=== PATIENT | male | born 1945 | race Caucasian/White ===

== ENCOUNTER 2021-08-31 00:52 | Inpatient (IN) | payer MEDICARE, MEDICAID ==
[~2021-08-31] VITALS: Ht 172.7 cm; Wt 121.6 kg
[2021-08-31 01:00] VITALS: BP 175/76
[2021-08-31] MEDS ORDERED: HYDRALAZINE 20MG/ML VIAL IV PRN ×2 (02:30→15:45)
[2021-08-31] MEDS ORDERED: DIPHENHYDRAMINE 50MG/ML VIAL IV PRN (02:30)
[2021-08-31] MEDS ORDERED: CLONIDINE 0.1MG TABLET PO PRN (02:30)
[2021-08-31] MEDS ORDERED: ACETAMINOPHEN 325MG TABLET PO PRN (02:30)
[2021-08-31] MEDS ORDERED: ACETAMINOPHEN 650MG SUPP PR PRN (02:30)
[2021-08-31] MEDS ORDERED: TOPUD PO (02:43)
[2021-08-31] MEDS ORDERED: HYDRALAZINE 5 MG in SODIUM CHLORIDE 0.9% 49.5 ML IV PRN (02:45)
[2021-08-31] MEDS ORDERED: MINE50OI TP (02:53)
[2021-08-31] MEDS: DEXT 5%/LACTATED RINGERS 1,000 ML IV SCH ×2 (03:23→22:11)
[2021-08-31 04:00] VITALS: BP 139/75
[2021-08-31] MEDS ORDERED: DEXJ4 IV (04:02)
[2021-08-31] MEDS ORDERED: FLUC200T51 PO (04:03)
[2021-08-31] MEDS ORDERED: MUPI1OIN4 TP (04:07)
[2021-08-31] MEDS ORDERED: ONDA4VIA22 IJ (04:07)
[2021-08-31] MEDS ORDERED: METO-293 IV (04:07)
[2021-08-31] MEDS ORDERED: HYDR-4001 PO (04:07)
[2021-08-31] MEDS ORDERED: MORP10SY6 IV (04:07)
[2021-08-31] MEDS: DEXAMETHASONE 4MG/ML 1ML VIAL IV SCH ×3 (05:35→18:25)
[2021-08-31 08:00] VITALS: BP 127/85
[2021-08-31] MEDS: MORPHINE SULFATE 2 MG/ML CPJ (NOT FOR IM USE) IV PRN ×2 (08:56→12:44)
[2021-08-31] MEDS ORDERED: LACTULOSE 20G/30ML UDC PO SCH (10:00)
[2021-08-31 11:34] LABS: INR 1.2; PARTIAL THROMBOPLASTIN TIME 24.3 sec (23.4-31.0); PROTHROMBIN TIME 13.1 sec (9.6-11.0)
[2021-08-31 12:00] VITALS: BP 116/80
[2021-08-31] MEDS ORDERED: VANCOMYCIN 1,500 MG in DEXT 5% WATER 250 ML IV SCH (12:00)
[2021-08-31] MEDS: DOCUSATE SODIUM 250MG CAPSULE PO SCH (12:01)
[2021-08-31] MEDS ORDERED: LIDOCAINE HCL 1% 20ML VIAL (Pyxis) INJ ONE (12:30)
[2021-08-31] MEDS: PIPERACILLIN/TAZOBACTAM 3.375 G in DEXTROSE 5% WATER 50 ML IV SCH ×2 (12:44→22:10)
[2021-08-31] MEDS: ONDANSETRON HCL 4MG/2ML INJ IV PRN (12:44)
[2021-08-31 14:11] LABS: CHLORIDE 109 mEq/L (98-107)
[2021-08-31] MEDS ORDERED: LIDOCAINE HCL 1% 30ML VIAL (10MG/ML) ONE (14:30)
[2021-08-31 15:55] VITALS: BP 139/80
[2021-08-31 17:44] LABS: HEMOGLOBIN. 15.8 g/dL (14.0-18.0); MEAN CORPUSCULAR HEMOGLOBIN 30.5 pg (28.0-32.0); MEAN CORPUSCULAR VOLUME 92.8 fL (80.0-94.0); MEAN PLATELET VOLUME 10.6 fl (7.4-10.4); PLATELET 105 x1000/uL (130-400); RED BLOOD CELL COUNT 5.17 mill/uL (4.7-6.1); RED CELL DISTRIBUTION WIDTH 16.4 % (11.6-14.6)
[2021-08-31 18:18] LABS: PLATELET ESTIMATE DECREASED
[2021-08-31] MEDS ORDERED: NALOXONE HCL 0.4MG/ML VIAL IV PRN (18:45)
[2021-08-31 20:00] VITALS: BP 130/78
[2021-08-31] MEDS: LEVETIRACETAM 500MG TABLET PO SCH (21:07)
[2021-08-31] MEDS: DOCUSATE SODIUM 100MG CAPSULE PO PRN (21:07)
[2021-09-01] VITALS: BP 147/86
[2021-09-01] MEDS: DEXAMETHASONE 4MG/ML 1ML VIAL IV SCH ×5 (00:36→18:26)
[2021-09-01 04:00] VITALS: BP 154/100
[2021-09-01] MEDS: PIPERACILLIN/TAZOBACTAM 3.375 G in DEXTROSE 5% WATER 50 ML IV SCH ×3 (05:33→21:17)
[2021-09-01] MEDS: VANCOMYCIN 1500MG in DEXTROSE 5% WATER 250ML IV SCH (06:37)
[2021-09-01 08:00] VITALS: BP 164/92
[2021-09-01] MEDS ORDERED: GADOTERATE MEGLUMINE 5 MMOL/10 ML VIAL IV ONE (08:22)
[2021-09-01] MEDS: DOCUSATE SODIUM 250MG CAPSULE PO SCH ×2 (09:00→09:59)
[2021-09-01] MEDS: LEVETIRACETAM 500MG TABLET PO SCH ×3 (09:00→21:11)
[2021-09-01] MEDS: MORPHINE SULFATE 2 MG/ML CPJ (NOT FOR IM USE) IV PRN (09:59)
[2021-09-01] MEDS ORDERED: DIAZEPAM 5 MG TABLET PO NR (11:45)
[2021-09-01 12:00] VITALS: BP 162/87
[2021-09-01] MEDS ORDERED: DIAZEPAM 2 MG TABLET PO NR (13:15)
[2021-09-01] MEDS ORDERED: DEXTROSE 50% WATER 50ML SYRINGE IV PRN (13:30)
[2021-09-01] MEDS ORDERED: LORAZEPAM 2MG/ML CPJ IV NR (13:40)
[2021-09-01] MEDS ORDERED: LORAZEPAM 2MG/ML CPJ IV ONE (13:45)
[2021-09-01 16:00] VITALS: BP 130/80
[2021-09-01 16:27] LABS: HEMOGLOBIN. 15.3 g/dL (14.0-18.0); MEAN CORPUSCULAR HEMOGLOBIN 30.4 pg (28.0-32.0); MEAN CORPUSCULAR VOLUME 91.4 fL (80.0-94.0); MEAN PLATELET VOLUME 11.8 fl (7.4-10.4); PLATELET 91 x1000/uL (130-400); RED BLOOD CELL COUNT 5.04 mill/uL (4.7-6.1); RED CELL DISTRIBUTION WIDTH 16.3 % (11.6-14.6)
[2021-09-01 16:32] LABS: CHLORIDE 110 mEq/L (98-107)
[2021-09-01 16:59] LABS: PLATELET ESTIMATE DECREASED
[2021-09-01] MEDS: BLOOD SUGAR DIAGNOSTIC STRIP TEST SCH ×2 (17:54→21:11)
[2021-09-01] MEDS: AMLODIPINE 5MG TABLET PO SCH (18:21)
[2021-09-01] MEDS: INSULIN LISPRO 100 UNITS/ML SUBCUT SCH ×2 (18:33→21:10)
[2021-09-01] MEDS: DEXT 5%/LACTATED RINGERS 1,000 ML IV SCH (19:00)
[2021-09-01 20:00] VITALS: BP 127/75
[2021-09-01] MEDS: DOCUSATE SODIUM 100MG CAPSULE PO PRN (21:28)
[2021-09-02] VITALS: BP 120/71
[2021-09-02] MEDS: DEXAMETHASONE 4MG/ML 1ML VIAL IV SCH ×4 (00:45→17:59)
[2021-09-02] MEDS: VANCOMYCIN 1500MG in DEXTROSE 5% WATER 250ML IV SCH (00:45)
[2021-09-02 01:13] LABS: CLARITY URINE CLEAR (CLEAR); COLOR URINE DARK YELLOW (YELLOW); KETONES URINE TRACE (NEGATIVE); LEUKOCYTE ESTERASE URINE NEGATIVE (NEGATIVE); NITRITE URINE NEGATIVE (NEGATIVE); OCCULT BLOOD URINE NEGATIVE (NEGATIVE); PH URINE 5.5 (4.5-8.0); PROTEIN URINE 2+ (NEGATIVE)
[2021-09-02] MEDS: MORPHINE SULFATE 2 MG/ML CPJ (NOT FOR IM USE) IV PRN ×2 (01:43→08:25)
[2021-09-02] MEDS: ONDANSETRON HCL 4MG/2ML INJ IV PRN ×2 (01:43→08:24)
[2021-09-02] MEDS: LACTULOSE 20G/30ML UDC PO PRN ×2 (03:17→12:19)
[2021-09-02 04:00] VITALS: BP 140/76
[2021-09-02] MEDS: PIPERACILLIN/TAZOBACTAM 3.375 G in DEXTROSE 5% WATER 50 ML IV SCH ×3 (05:59→21:10)
[2021-09-02] MEDS: BLOOD SUGAR DIAGNOSTIC STRIP TEST SCH ×4 (06:21→21:09)
[2021-09-02 08:00] VITALS: BP 163/79
[2021-09-02] MEDS: INSULIN LISPRO 100 UNITS/ML SUBCUT SCH ×4 (08:46→21:23)
[2021-09-02] MEDS: DOCUSATE SODIUM 250MG CAPSULE PO SCH (09:49)
[2021-09-02] MEDS: LEVETIRACETAM 500MG TABLET PO SCH ×2 (09:49→20:50)
[2021-09-02] MEDS: AMLODIPINE 5MG TABLET PO SCH (09:49)
[2021-09-02 12:00] VITALS: BP 150/89
[2021-09-02 12:09] LABS: HEMATOCRIT. 49.6 % (42.0-52.0); HEMOGLOBIN. 16.2 g/dL (14.0-18.0); MEAN CORPUSCULAR HEMOGLOBIN 30.1 pg (28.0-32.0); MEAN CORPUSCULAR VOLUME 92.3 fL (80.0-94.0); MEAN PLATELET VOLUME 11.7 fl (7.4-10.4); PLATELET 108 x1000/uL (130-400); RED BLOOD CELL COUNT 5.37 mill/uL (4.7-6.1); RED CELL DISTRIBUTION WIDTH 16.4 % (11.6-14.6)
[2021-09-02 14:02] LABS: PROSTRATE SPECIFIC AG TOTAL 0.12 ng/mL (0.0-4.0)
[2021-09-02 14:13] LABS: HEPATITIS B SURFACE ANTIGEN NEGATIVE
[2021-09-02 14:21] LABS: PLATELET ESTIMATE SLIGHTLY DECREASED
[2021-09-02] MEDS: DEXT 5%/LACTATED RINGERS 1,000 ML IV SCH (14:24)
[2021-09-02 14:29] LABS: CHLORIDE 108 mEq/L (98-107)
[2021-09-02 14:36] LABS: PHOSPHORUS 2.5 mg/dL (2.5-4.9)
[2021-09-02 16:00] VITALS: BP 111/72
[2021-09-02] MEDS: VANCOMYCIN 1 G PREMIX 200 ML IV SCH (18:12)
[2021-09-02 20:00] VITALS: BP 130/80
[2021-09-02] MEDS: LACTULOSE 20G/30ML UDC PO SCH (20:50)
[2021-09-03] VITALS: BP 141/85
[2021-09-03] MEDS: DEXAMETHASONE 4MG/ML 1ML VIAL IV SCH ×5 (00:17→23:43)
[2021-09-03 04:00] VITALS: BP 137/72
[2021-09-03] MEDS: PIPERACILLIN/TAZOBACTAM 3.375 G in DEXTROSE 5% WATER 50 ML IV SCH ×3 (05:18→21:53)
[2021-09-03] MEDS: VANCOMYCIN 1 G PREMIX 200 ML IV SCH ×2 (05:24→18:07)
[2021-09-03 07:05] LABS: HEMATOCRIT. 44.9 % (42.0-52.0); HEMOGLOBIN. 14.7 g/dL (14.0-18.0); MEAN CORPUSCULAR HEMOGLOBIN 30.2 pg (28.0-32.0); MEAN CORPUSCULAR VOLUME 92.2 fL (80.0-94.0); MEAN PLATELET VOLUME 11.7 fl (7.4-10.4); PLATELET 86 x1000/uL (130-400); RED BLOOD CELL COUNT 4.87 mill/uL (4.7-6.1); RED CELL DISTRIBUTION WIDTH 16.2 % (11.6-14.6)
[2021-09-03 07:25] LABS: CHLORIDE 111 mEq/L (98-107)
[2021-09-03] MEDS: BLOOD SUGAR DIAGNOSTIC STRIP TEST SCH ×4 (07:28→21:49)
[2021-09-03 07:59] VITALS: BP 153/88
[2021-09-03] MEDS: INSULIN LISPRO 100 UNITS/ML SUBCUT SCH ×4 (08:16→21:54)
[2021-09-03] MEDS: AMLODIPINE 5MG TABLET PO SCH (08:34)
[2021-09-03] MEDS: LACTULOSE 20G/30ML UDC PO SCH ×2 (08:34→18:07)
[2021-09-03] MEDS: LEVETIRACETAM 500MG TABLET PO SCH ×2 (08:34→21:54)
[2021-09-03] MEDS: DOCUSATE SODIUM 250MG CAPSULE PO SCH (08:34)
[2021-09-03] MEDS: DEXT 5%/LACTATED RINGERS 1,000 ML IV SCH (11:56)
[2021-09-03 11:59] VITALS: BP 147/77
[2021-09-03 13:17] LABS: PLATELET ESTIMATE DECREASED
[2021-09-03 15:55] VITALS: BP 158/97
[2021-09-03] MEDS ORDERED: NA PHOS,M-B/NA PHOS,DI-BA ENEMA 118ML PR NR (17:00)
[2021-09-03] MEDS ORDERED: BISACODYL 10MG SUPP PR NR (17:00)
[2021-09-03 20:00] VITALS: BP 169/98
[2021-09-04] VITALS: BP 150/97
[2021-09-04 04:00] VITALS: BP 150/90
[2021-09-04 06:20] LABS: CHLORIDE 111 mEq/L (98-107)
[2021-09-04 06:40] LABS: HEMATOCRIT. 40.6 % (42.0-52.0); HEMOGLOBIN. 13.3 g/dL (14.0-18.0); MEAN CORPUSCULAR HEMOGLOBIN 30.1 pg (28.0-32.0); MEAN CORPUSCULAR VOLUME 91.4 fL (80.0-94.0); MEAN PLATELET VOLUME 11.4 fl (7.4-10.4); PLATELET 78 x1000/uL (130-400); RED BLOOD CELL COUNT 4.44 mill/uL (4.7-6.1); RED CELL DISTRIBUTION WIDTH 16.5 % (11.6-14.6)
[2021-09-04] MEDS: PIPERACILLIN/TAZOBACTAM 3.375 G in DEXTROSE 5% WATER 50 ML IV SCH ×4 (06:40→21:15)
[2021-09-04] MEDS: VANCOMYCIN 1 G PREMIX 200 ML IV SCH ×2 (06:40→19:31)
[2021-09-04] MEDS: DEXAMETHASONE 4MG/ML 1ML VIAL IV SCH ×3 (06:40→21:15)
[2021-09-04] MEDS: DEXT 5%/LACTATED RINGERS 1,000 ML IV SCH (07:00)
[2021-09-04] MEDS: BLOOD SUGAR DIAGNOSTIC STRIP TEST SCH ×4 (07:20→21:16)
[2021-09-04] MEDS: INSULIN LISPRO 100 UNITS/ML SUBCUT SCH ×4 (07:50→21:17)
[2021-09-04 07:59] VITALS: BP 147/96
[2021-09-04] MEDS ORDERED: NA PHOS,M-B/NA PHOS,DI-BA ENEMA 118ML PR SCH (10:00)
[2021-09-04] MEDS: LEVETIRACETAM 500MG TABLET PO SCH ×2 (10:00→21:15)
[2021-09-04] MEDS: DOCUSATE SODIUM 250MG CAPSULE PO SCH (10:00)
[2021-09-04] MEDS ORDERED: BISACODYL 5MG TABLET PO SCH (10:00)
[2021-09-04] MEDS: LACTULOSE 20G/30ML UDC PO SCH ×2 (10:00→18:48)
[2021-09-04] MEDS: AMLODIPINE 5MG TABLET PO SCH (10:01)
[2021-09-04 11:39] VITALS: BP 170/92
[2021-09-04 11:48] LABS: PLATELET ESTIMATE DECREASED
[2021-09-04 16:32] VITALS: BP 143/92
[2021-09-04] MEDS ORDERED: DEXAMETHASONE 4MG/ML 1ML VIAL IV SCH (17:00)
[2021-09-04] MEDS: LOSARTAN POTASSIUM 25 MG TABLET PO SCH (18:48)
[2021-09-04] MEDS: SPIRONOLACTONE 25MG TABLET PO SCH (18:48)
[2021-09-04 20:15] VITALS: BP 152/87
[2021-09-05] VITALS: BP 154/83
[2021-09-05] MEDS: DEXT 5%/LACTATED RINGERS 1,000 ML IV SCH ×2 (03:15→23:00)
[2021-09-05 04:00] VITALS: BP 146/79
[2021-09-05] MEDS: DEXAMETHASONE 4MG/ML 1ML VIAL IV SCH ×3 (05:04→21:14)
[2021-09-05] MEDS: VANCOMYCIN 1 G PREMIX 200 ML IV SCH ×2 (05:05→18:53)
[2021-09-05] MEDS: PIPERACILLIN/TAZOBACTAM 3.375 G in DEXTROSE 5% WATER 50 ML IV SCH ×2 (05:06→13:32)
[2021-09-05 06:53] LABS: HEMATOCRIT. 41.4 % (42.0-52.0); HEMOGLOBIN. 13.8 g/dL (14.0-18.0); MEAN CORPUSCULAR HEMOGLOBIN 30.4 pg (28.0-32.0); MEAN CORPUSCULAR VOLUME 91.7 fL (80.0-94.0); MEAN PLATELET VOLUME 11.6 fl (7.4-10.4); PLATELET 89 x1000/uL (130-400); RED BLOOD CELL COUNT 4.52 mill/uL (4.7-6.1); RED CELL DISTRIBUTION WIDTH 16.2 % (11.6-14.6)
[2021-09-05] MEDS: MORPHINE SULFATE 2 MG/ML CPJ (NOT FOR IM USE) IV PRN (07:28)
[2021-09-05] MEDS: BLOOD SUGAR DIAGNOSTIC STRIP TEST SCH ×4 (07:47→21:17)
[2021-09-05 07:48] LABS: CHLORIDE 108 mEq/L (98-107)
[2021-09-05 08:00] VITALS: BP 162/91
[2021-09-05] MEDS: LEVETIRACETAM 500MG TABLET PO SCH ×2 (08:44→21:14)
[2021-09-05] MEDS: DOCUSATE SODIUM 100MG CAPSULE PO PRN (08:44)
[2021-09-05] MEDS: SPIRONOLACTONE 25MG TABLET PO SCH (08:44)
[2021-09-05] MEDS: AMLODIPINE 5MG TABLET PO SCH ×2 (08:44→21:14)
[2021-09-05] MEDS: LACTULOSE 20G/30ML UDC PO SCH ×2 (08:44→17:06)
[2021-09-05] MEDS: INSULIN LISPRO 100 UNITS/ML SUBCUT SCH ×4 (08:45→21:16)
[2021-09-05] MEDS ORDERED: NA PHOS,M-B/NA PHOS,DI-BA ENEMA 118ML PR SCH (09:45)
[2021-09-05] MEDS: LOSARTAN POTASSIUM 25 MG TABLET PO SCH (09:54)
[2021-09-05] MEDS: DOCUSATE SODIUM 250MG CAPSULE PO SCH (09:54)
[2021-09-05 12:00] VITALS: BP 160/73
[2021-09-05] MEDS ORDERED: BISACODYL 5MG TABLET PO PRN (15:15)
[2021-09-05 16:00] VITALS: BP 120/83
[2021-09-05 16:46] LABS: PLATELET ESTIMATE DECREASED
[2021-09-05 20:38] VITALS: BP 123/75
[2021-09-06] VITALS: BP 132/72
[2021-09-06 04:24] VITALS: BP 145/86
[2021-09-06] MEDS: DEXAMETHASONE 4MG/ML 1ML VIAL IV SCH ×3 (05:34→21:19)
[2021-09-06] MEDS: BLOOD SUGAR DIAGNOSTIC STRIP TEST SCH ×4 (07:40→21:19)
[2021-09-06 08:00] VITALS: BP 132/73
[2021-09-06] MEDS: LEVETIRACETAM 500MG TABLET PO SCH ×2 (08:53→21:18)
[2021-09-06] MEDS: LACTULOSE 20G/30ML UDC PO SCH ×2 (08:53→17:55)
[2021-09-06] MEDS: DOCUSATE SODIUM 250MG CAPSULE PO SCH (08:53)
[2021-09-06] MEDS: SPIRONOLACTONE 25MG TABLET PO SCH (08:54)
[2021-09-06] MEDS: AMLODIPINE 5MG TABLET PO SCH ×2 (08:54→21:18)
[2021-09-06] MEDS: LOSARTAN POTASSIUM 25 MG TABLET PO SCH (08:54)
[2021-09-06] MEDS: INSULIN LISPRO 100 UNITS/ML SUBCUT SCH ×4 (08:55→21:20)
[2021-09-06] MEDS: FUROSEMIDE 40MG TABLET PO SCH (11:13)
[2021-09-06 12:00] VITALS: BP 145/75
[2021-09-06 14:46] LABS: HEMATOCRIT. 41.7 % (42.0-52.0); HEMOGLOBIN. 14.1 g/dL (14.0-18.0); MEAN CORPUSCULAR HEMOGLOBIN 30.6 pg (28.0-32.0); MEAN CORPUSCULAR VOLUME 90.8 fL (80.0-94.0); PLATELET 80 x1000/uL (130-400); RED CELL DISTRIBUTION WIDTH 16.1 % (11.6-14.6)
[2021-09-06 14:54] LABS: CHLORIDE 105 mEq/L (98-107)
[2021-09-06 16:00] VITALS: BP 133/77
[2021-09-06 19:21] LABS: PLATELET ESTIMATE DECREASED
[2021-09-06 20:00] VITALS: BP 128/74
[2021-09-06] MEDS: DEXT 5%/LACTATED RINGERS 1,000 ML IV SCH (21:18)
[2021-09-07 00:23] VITALS: BP 130/68
[2021-09-07 04:00] VITALS: BP 136/75
[2021-09-07 05:08] LABS: HEMOGLOBIN. 14.7 g/dL (14.0-18.0); MEAN CORPUSCULAR HEMOGLOBIN 30.5 pg (28.0-32.0); MEAN CORPUSCULAR VOLUME 91.5 fL (80.0-94.0); MEAN PLATELET VOLUME 10.6 fl (7.4-10.4); PLATELET 80 x1000/uL (130-400); RED BLOOD CELL COUNT 4.81 mill/uL (4.7-6.1); RED CELL DISTRIBUTION WIDTH 15.9 % (11.6-14.6)
[2021-09-07 05:17] LABS: CHLORIDE 103 mEq/L (98-107)
[2021-09-07] MEDS: DEXAMETHASONE 4MG/ML 1ML VIAL IV SCH (06:47)
[2021-09-07] MEDS: BLOOD SUGAR DIAGNOSTIC STRIP TEST SCH ×4 (06:47→21:10)
[2021-09-07] MEDS: INSULIN LISPRO 100 UNITS/ML SUBCUT SCH ×4 (07:50→21:25)
[2021-09-07 07:54] VITALS: BP 133/80
[2021-09-07] MEDS: LACTULOSE 20G/30ML UDC PO SCH ×2 (08:52→18:10)
[2021-09-07] MEDS: FUROSEMIDE 40MG TABLET PO SCH (08:53)
[2021-09-07] MEDS: AMLODIPINE 5MG TABLET PO SCH ×2 (08:53→21:23)
[2021-09-07] MEDS: LEVETIRACETAM 500MG TABLET PO SCH ×2 (08:53→21:22)
[2021-09-07] MEDS: LOSARTAN POTASSIUM 25 MG TABLET PO SCH (08:53)
[2021-09-07] MEDS: DOCUSATE SODIUM 250MG CAPSULE PO SCH (08:58)
[2021-09-07 11:05] VITALS: BP 103/76
[2021-09-07 15:49] LABS: PLATELET ESTIMATE DECREASED
[2021-09-07 16:00] VITALS: BP 125/82
[2021-09-07] MEDS ORDERED: DEXAMETHASONE 4MG/ML 1ML VIAL IV SCH (17:00)
[2021-09-07 20:39] VITALS: BP 126/84
[2021-09-08 00:13] VITALS: BP 115/75
[2021-09-08 04:00] VITALS: BP 122/79
[2021-09-08] MEDS: BLOOD SUGAR DIAGNOSTIC STRIP TEST SCH ×2 (06:37→12:20)
[2021-09-08] MEDS: INSULIN LISPRO 100 UNITS/ML SUBCUT SCH ×2 (07:50→12:50)
[2021-09-08 08:10] VITALS: BP 134/77
[2021-09-08] MEDS ORDERED: DEXAMETHASONE 4MG/ML 1ML VIAL IV SCH (09:00)
[2021-09-08] MEDS: LACTULOSE 20G/30ML UDC PO SCH (09:47)
[2021-09-08] MEDS: FUROSEMIDE 40MG TABLET PO SCH (09:47)
[2021-09-08] MEDS: LOSARTAN POTASSIUM 25 MG TABLET PO SCH (09:47)
[2021-09-08] MEDS: LEVETIRACETAM 500MG TABLET PO SCH (09:47)
[2021-09-08] MEDS: DOCUSATE SODIUM 250MG CAPSULE PO SCH (09:47)
[2021-09-08] MEDS: AMLODIPINE 5MG TABLET PO SCH (09:48)
[2021-09-08 12:14] VITALS: BP 124/80
[2021-09-08 15:29] VITALS: BP 124/80
[2021-09-08 16:46] VITALS: BP 116/73
== END 2021-09-08 18:05 | DRG 64 ==
LOC: 6EST 00:52 → 6WST 15:30
PROVIDERS: ADMIT Internal Medicine Nephrology; ATTEND Internal Medicine Nephrology
PROC: 05HY33Z Insertion of Infusion Device into Upper Vein, Percutaneous Approach (ICD-10-PCS; 2021-08-31)
PROC: B54MZZA Ultrasonography of Right Upper Extremity Veins, Guidance (ICD-10-PCS; 2021-08-31)
PROC: 4A10X4Z Monitoring of Central Nervous Electrical Activity, External Approach (ICD-10-PCS; principal; 2021-09-01)
DX: I63.512 Cerebral infarction due to unspecified occlusion or stenosis of left middle cerebral artery (principal); E43 Unspecified severe protein-calorie malnutrition; L03.115 Cellulitis of right lower limb; L03.116 Cellulitis of left lower limb; G93.40 Encephalopathy, unspecified; G81.91 Hemiplegia, unspecified affecting right dominant side; K80.10 Calculus of gallbladder with chronic cholecystitis without obstruction; Z68.41 Body mass index [BMI] 40.0-44.9, adult; E66.01 Morbid (severe) obesity due to excess calories; D69.6 Thrombocytopenia, unspecified; K74.60 Unspecified cirrhosis of liver; J44.9 Chronic obstructive pulmonary disease, unspecified; E11.9 Type 2 diabetes mellitus without complications; E78.5 Hyperlipidemia, unspecified; G47.33 Obstructive sleep apnea (adult) (pediatric); G93.89 Other specified disorders of brain; I25.10 Atherosclerotic heart disease of native coronary artery without angina pectoris; K59.00 Constipation, unspecified; F17.210 Nicotine dependence, cigarettes, uncomplicated; K42.9 Umbilical hernia without obstruction or gangrene; M19.90 Unspecified osteoarthritis, unspecified site; I10 Essential (primary) hypertension; E78.00 Pure hypercholesterolemia, unspecified; F10.10 Alcohol abuse, uncomplicated; Y90.9 Presence of alcohol in blood, level not specified; R47.01 Aphasia; K76.0 Fatty (change of) liver, not elsewhere classified; I27.20 Pulmonary hypertension, unspecified; R00.1 Bradycardia, unspecified; Z20.822 Contact with and (suspected) exposure to COVID-19; D72.828 Other elevated white blood cell count; N28.1 Cyst of kidney, acquired; Z85.46 Personal history of malignant neoplasm of prostate
CPT/HCPCS: 36415; 70544; 70553; 71045; 71250; 74018; 74176; 76700; 76937; 78227; 80048; 80053; 80076; 80202; 80307; 81003; 82248; 82962; 83036; 83735; 84075; 84100; 84153; 84443; 84450; 84460; 84484; 85025; 86705; 86709; 86803; 87340; 87426; 92610; 93005; 93306; 93880; 93970; 97110; 97162; 97166; 97530; 97535; A9537; A9577; C1725; J1100; J1815; J2060; J2270; J2405; J2543; J3370; J3490; J7060; J7121; G0103